=== PATIENT | female | born 1955 | race Caucasian/White ===

== ENCOUNTER 2017-06-03 16:55 | Emergency (ER) | payer OTHER ==
[~2017-06-03] VITALS: Ht 162.6 cm; Wt 63.0 kg
[~2017-06-03 16:55] MED LIST: CYCL1TAB29 PO; ERGO1CAP30 PO
[2017-06-03 16:57] VITALS: BP 138/70; PULSE 80; RESP 20; TEMP 97.7; O2SAT 97
[2017-06-03] MEDS ORDERED: ONDANSETRON ODT 4 MG TAB PO ONE (18:00)
[2017-06-03] MEDS ORDERED: KETOROLAC TROMETHAMINE 60 MG/2 ML (IM) VIAL IM ONE (18:00)
[2017-06-03] MEDS ORDERED: MORPHINE SULFATE 4 MG/ML INJ IM ONE (18:00)
[2017-06-03] MEDS ORDERED: MEDR4PAK PO (18:55)
--- NOTE | 2017-06-03 19:03 | PD ---
HPI Chief Complaint: Back/ Neck Pain or Injury Time Seen by Provider: 17:47 Travel History International Travel<30 days: No Contact w/Intl Traveler<30days: No Traveled to known affect area: No History of Present Illness HPI 62-year-old female that presents to the ED for evaluation of back pain since last Sunday. Per patient she was doing a lot of work at her home and she believes that this might have Something. Per Patient She Usually Gets Some Pain Here and There but Nothing As Bad As This. She went to an urgent care on Sunday and was given Flexeril. Per patient he seems to help a little bit but the pain today, more severe so she came here instead. She states that the pain stays mainly on the lumbar back. Does to the right buttocks. [place] any numbness, tilling, weakness. No chest pain or shortness of breath. No fevers chills or sweats. No bowel movement or urinary issues. Has an allergy to acetaminophen and hydrocodone. PFSH Past Medical History Blood Disorders: No Anxiety: No Depression: Yes Cancer: No Cardiovascular Problems: No Diabetes: No Endocrine: No Gastrointestinal Disorders: No Genitourinary: No Hepatitis: No Hiatal Hernia: No Immune Disorder: No Medical other: No Musculoskeletal: Yes (NECK PAIN) Neurologic: No Psychiatric: No Reproductive: Yes (PELVIC PROLAPSE) Respiratory: No Thyroid Disease: No Tetanus Vaccination: < 5 Years Past Surgical History Abdominal Surgery: Yes (RIGHT ING HERNIA REPAIR) Body Medical Devices: NONE Hysterectomy: Yes Other Surgery: Yes Social History Alcohol Use: No Tobacco Use: No Substance Use: No Allergies-Medications (Allergen,Severity, Reaction): Coded Allergies: acetaminophen (Unverified Allergy, Mild, ITCH, 06/03/17) hydrocodone (Unverified Allergy, Mild, ITCH, 06/03/17) Reported Meds & Prescriptions Reported Meds & Active Scripts Active Medrol Dosepak (Methylprednisolone) 4 Mg Dspk 4 Mg PO DIRECTED Per Pharmacist direction Ergocalciferol 50,000 Unit Cap 50,000 Units PO Q7D Flexeril (Cyclobenzaprine HCl) 10 Mg Tab 10 Mg PO TID 5 Days Review of Systems Except as stated in HPI: all other systems reviewed are Neg Physical Exam Narrative GENERAL: SKIN: Warm and dry. HEAD: Atraumatic. Normocephalic. EYES: Pupils equal and round. No scleral icterus. No injection or drainage. ENT: No nasal bleeding or discharge. Mucous membranes pink and moist. Tongue is midline. No uvula deviation. NECK: Trachea midline. No JVD. CARDIOVASCULAR: Regular rate and rhythm. No murmurs, S3, S4. RESPIRATORY: No accessory muscle use. Clear to auscultation. Breath sounds equal bilaterally. GASTROINTESTINAL: Abdomen soft, non-tender, nondistended. Hepatic and splenic margins not palpable. MUSCULOSKELETAL: Extremities without clubbing, cyanosis, or edema. No obvious deformities. Full range of motion of the upper and lower extremities bilaterally. 2+ pulses bilaterally. Tenderness to palpation on the lumbar musculature. Mostly on the right buttocks. Pain with range of motion of the back. NEUROLOGICAL: Awake and alert. No obvious cranial nerve deficits. Motor grossly within normal limits. Five out of 5 muscle strength in the arms and legs. Normal speech. PSYCHIATRIC: Appropriate mood and affect; insight and judgment normal. Data Data Last Documented VS Vital Signs Date Time Temp Pulse Resp B/P (MAP) Pulse Ox O2 Delivery O2 Flow Rate FiO2 06/03/17 16:57 97.7 80 20 138/70 (92) 97 Room Air Orders Orders Morphine Inj (Morphine Inj) (06/03/17 18:00) Ondansetron Odt (Zofran Odt) (06/03/17 18:00) Ketorolac Inj (Toradol Inj) (06/03/17 18:00) [facility] Medical Decision Making Medical Screen Exam Complete: Yes Emergency Medical Condition: Yes Medical Record Reviewed: Yes Differential Diagnosis Muscle strain versus fracture versus sciatica Narrative Course 62-year-old female that presents to the ED for evaluation of lower back pain. Patient was properly examined and was found to have signs and symptoms consistent with muscle strain lumbar radiculopathy. Patient will be given pain medications here. Patient was going tach. Patient here mainly for pain relief. I did mention to her that we could do an x-ray of her back but she declined secondary to concern for radiation as she just had surgery for her breast cancer she is concerned that this might bring the cancer back. My attending Dr. Haq herself when evaluated the patient and recommends starting patient on Medrol Dosepak. This was told to the patient. Patient was given pain medications with some relief. She was told that she would follow her PCP and get MRI outpatient. She agrees and understands. Possible physical therapy as well patient. Close follow with PCP. No heavy lifting. See ED for worsening symptoms. Diagnosis Primary Impression: Lumbar radiculopathy, acute Patient Instructions: Narcotic given in the ED, General Instructions Additional Instructions: Take medications as prescribed. Continue taking the Flexeril as well as naproxen to help with her back pain. Apply warm compresses to the back. No heavy lifting of any kind until completely better. Follow-up with your PCP tomorrow if possible to get a referral for physical therapy and MRI if needed. See ED for any worsening symptoms. Med/Other Pt SpecificInfo: Prescription(s) given Scripts Methylprednisolone Dosepak (Medrol Dosepak) 4 Mg Dspk 4 MG PO DIRECTED, #1 DSPK 0 Refills Per Pharmacist direction Prov: Almaz Haq MD 06/03/17 Disposition: 01 DISCHARGE HOME Condition: Stable Lazaro Juan Jun 03, 2017 19:03
[2017-06-03 19:26] VITALS: BP 125/70; PULSE 92; RESP 16; O2SAT 97
== END 2017-06-03 20:34 | disposition home or self-care (01) ==
LOC: NEPE 16:55
DX: M54.16 Radiculopathy, lumbar region (principal)
CPT/HCPCS: 96372; 99284; J1885; J2270

== ENCOUNTER 2017-07-05 14:29 | Emergency (ER) | payer OTHER ==
[~2017-07-05] VITALS: Ht 165.1 cm; Wt 70.0 kg
[~2017-07-05 14:29] MED LIST changes: +MEDR4PAK PO
[2017-07-05 14:34] VITALS: BP 157/75; PULSE 90; RESP 20; TEMP 98.6; O2SAT 99
--- NOTE | 2017-07-05 15:10 | PD ---
HPI Chief Complaint: Numbness/Tingling Time Seen by Provider: 14:43 Travel History International Travel<30 days: No Contact w/Intl Traveler<30days: No Traveled to known affect area: No History of Present Illness HPI 62-year-old female presents to emergency department via EMS with complaint of sadness and stress at work for the last 2-2-1/2 years. She is an employee at [email or web address] and says her visual merchandising manager and other employees have been pulling her. Today her visual merchandising manager was making fun of her, pointing her finger at her and laughing at her. The patient says she became nervous and started feeling panicky. She states that she was crying and became dizzy and short of breath. Reports paresthesias in her hands and feet for the last 2-2-1/2 years since all this isn't happening. Patient is tearful and upset and says she has been feeling very stressed and sad. She says she gets very nervous when she thinks about having to go to work. She denies suicidal or homicidal ideations. She has no medical complaints at this time. She denies lightheadedness, dizziness, chest pain, shortness of breath, abdominal pain, nausea, vomiting. She has not taken any medications or tried any treatments to alleviate her symptoms. Work aggravates her symptoms. Has a very supportive and caring . She has allergies to acetaminophen and hydrocodone. Has no other medical complaints. Denies past medical history. No other modifying factors or associated signs and symptoms. PFSH Past Medical History Blood Disorders: No Anxiety: No Depression: Yes Cancer: Yes (BREAST CA) Cardiovascular Problems: No Diabetes: No Endocrine: No Gastrointestinal Disorders: No Genitourinary: No Hepatitis: No Hiatal Hernia: No Immune Disorder: No Musculoskeletal: Yes (NECK PAIN) Neurologic: No Psychiatric: No Reproductive: Yes (PELVIC PROLAPSE) Respiratory: No Thyroid Disease: No Tetanus Vaccination: < 5 Years Influenza Vaccination: No ?: Not Past Surgical History Abdominal Surgery: Yes (RIGHT ING HERNIA REPAIR) Body Medical Devices: NONE Hysterectomy: Yes Other Surgery: Yes (L SIDED MASTECTOMY) Social History Alcohol Use: No Tobacco Use: No Substance Use: No Allergies-Medications (Allergen,Severity, Reaction): Coded Allergies: acetaminophen (Unverified Allergy, Mild, ITCH, 07/05/17) hydrocodone (Unverified Allergy, Mild, ITCH, 07/05/17) Reported Meds & Prescriptions Reported Meds & Active Scripts Active Vistaril (Hydroxyzine Pamoate) 25 Mg Cap 25 Mg PO BID PRN Ergocalciferol 50,000 Unit Cap 50,000 Units PO Q7D Review of Systems Except as stated in HPI: all other systems reviewed are Neg Physical Exam Narrative GENERAL: Well-nourished, well-developed female patient, in no acute distress SKIN: Warm and dry. HEAD: Atraumatic. Normocephalic. No facial droop noted. Tongue midline. EYES: Pupils equal and round at 3 mm with brisk reaction. No scleral icterus. No injection or drainage. PERRLA. EOMI. ENT: Mucosa pink and moist. Airway patent. NECK: Trachea midline. No lymphadenopathy. CARDIOVASCULAR: Regular rate and rhythm. No murmur appreciated. RESPIRATORY: No accessory muscle use. Clear to auscultation. Breath sounds equal bilaterally. No retractions or tachypnea. GASTROINTESTINAL: Abdomen soft, non-tender, nondistended. Hepatic and splenic margins not palpable. Bowel sounds are active 4 quadrants. MUSCULOSKELETAL: No obvious deformities. No clubbing. No cyanosis. No edema. NEUROLOGICAL: Awake and alert. Oriented 3. No obvious cranial nerve deficits. Motor grossly within normal limits. Normal speech. No ataxia. No mid -line drift. Moves all extremities. 5/5 strength to all extremities. PSYCHIATRIC: Appropriate mood and affect; insight and judgment normal. Data Data Last Documented VS Vital Signs Date Time Temp Pulse Resp B/P (MAP) Pulse Ox O2 Delivery O2 Flow Rate FiO2 07/05/17 14:43 88 18 99 Room Air 07/05/17 14:34 98.6 157/75 (102) Orders Orders Ed Discharge Order (07/05/17 15:13) Hydroxyzine Pamoate (Vistaril) (07/05/17 15:30) Ibuprofen (Motrin) (07/05/17 15:30) MDM Medical Decision Making Medical Screen Exam Complete: Yes Emergency Medical Condition: Yes Medical Record Reviewed: Yes Differential Diagnosis Stress, anxiety, panic attack Narrative Course 62-year-old female physical exam and history of present illness consistent with stress at work that is causing her anxiety. She apparently is being picked on and bullied by her visual merchandising manager and other employees for the past 2-2-1/2 years. She was brought in via EMS after becoming short of breath and feeling dizzy from crying after her visual merchandising manager was saying mean things to her, pointing at her, and laughing at her. She has no current medical complaints. She denies chest pain , shortness of breath, dizziness, lightheadedness. Physical exam is unremarkable. Neuro exam is unremarkable. She is asking for something to calm her nerves. The patient was discussed with my attending physician, Dr. Escobar , and he agrees with my plan of care. Vistaril administered in the ER. Vistaril prescribed for home. Instructed patient to follow up with primary care provider. Patient verbalizes understanding and agreement with treatment plan. Patient is medically cleared and stable for discharge. Discussed reasons to return to the emergency department. Patient agrees with treatment plan. The patients vital signs are stable and the patient is stable for outpatient follow-up and treatment. Patient discharged home, stable and in no acute distress. Diagnosis Primary Impression: Stress at work Referrals: Primary Care Physician Patient Instructions: General Instructions, Stress (DC) Additional Instructions: Vistaril as prescribed and as needed for anxiety Do not take Vistaril with alcohol and do not drive when taking Vistaril; Vistaril causes drowsiness Avoid stressful situations Follow-up with primary care provider Return to the emergency department immediately for worsening of symptoms Med/Other Pt SpecificInfo: Prescription(s) given, No Meds Exist/No RX given Scripts Hydroxyzine Pamoate (Vistaril) 25 Mg Cap 25 MG PO BID Y for ANXIETY, #8 CAP 0 Refills Prov: Iliana Roberts 07/05/17 Disposition: 01 DISCHARGE HOME Condition: Stable Iliana Roberts Jul 05, 2017 15:10
[2017-07-05] MEDS ORDERED: VIST25CA PO ×2 (15:22)
[2017-07-05] MEDS ORDERED: hydrOXYzine PAMOATE 25 MG CAP PO ONE ×2 (15:30)
[2017-07-05] MEDS ORDERED: IBUPROFEN 600 MG TAB PO ONE ×2 (15:30)
== END 2017-07-05 16:19 | disposition home or self-care (01) ==
LOC: NEPD 14:29
DX: R42 Dizziness and giddiness (principal); Z56.6 Other physical and mental strain related to work
CPT/HCPCS: 99283; Q0177